=== PATIENT | female | born 1975 | race Hispanic/Latino ===

== ENCOUNTER 2023-01-25 19:36 | Emergency (ER) | payer BC ==
[~2023-01-25] VITALS: Ht 162.6 cm; Wt 79.4 kg
[2023-01-25 20:33] LABS: APPEARANCE,URINE CLEAR (CLEAR); BILIRUBIN,URINE NEGATIVE (NEGATIVE); COLOR,URINE LIGHT-YELLOW (YELLOW); GLUCOSE, URINE (UA) NEGATIVE (NEGATIVE); KETONES,URINE NEGATIVE (NEGATIVE); LEUKOCYTE ESTERASE ,URINE 500 Leu/uL (NEGATIVE); NITRATE,URINE NEGATIVE (NEGATIVE); OCCULT BLOOD,URINE NEGATIVE (NEGATIVE); PH,URINE 6.5 (5.0-8.0); PROTEIN,URINE NEGATIVE (NEGATIVE); UROBILINOGEN,URINE 3 mg/dL (0.2-1.0)
[2023-01-25 20:34] LABS: ADD UA MICROSCOPIC YES
[2023-01-25 20:36] LABS: BACTERIA,URINE RARE /HPF (None Seen); RBC,URINE 0-1 /HPF (0-1); SQUAMOUS EPITHELIAL CELL,UR RARE /HPF (0-2)
[2023-01-25] MEDS ORDERED: SULF1TAB42 PO (21:15)
[2023-01-25] MEDS ORDERED: CEFTRIAXONE 1G VIAL IM ONE (21:30)
[2023-01-25] MEDS ORDERED: IBUPROFEN 600 MG TABLET PO ONE (21:30)
[2023-01-25 21:59] VITALS: BP 113/73; PULSE 76; RESP 18; O2SAT 100
== END 2023-01-25 22:01 | disposition home or self-care (01) ==
LOC: EDH 19:36
DX: N39.0 Urinary tract infection, site not specified (principal)
CPT/HCPCS: 99284; 87088; 81001; 96372; J0696